=== PATIENT | female | born 1930 | race Caucasian/White ===

== ENCOUNTER → 2017-09-25 | Outpatient (CLI) | END | disposition home or self-care (01) ==

== ENCOUNTER → 2018-03-27 | Outpatient (CLI) | payer MEDICARE, OTHER ==
--- NOTE | 2018-03-27 16:30 | CONS ---
Consult Date/Type/Reason Admit Date/Time Initial Consult Date Date/Time of Note DATE: 03/27/18 TIME: 16:28 Subjective 87-year-old female following up today for bilateral knee pain. At last visit steroid injections were offered however she deferred at that time. She is not interested in surgery. Today her right knee hurts worse than her left knee. She is interested in talking about steroid injections. Her symptoms are unchanged. She has continued moderate pain which interfere with her daily life. Denies any numbness and tingling. Objective Vitals Weight: 150 pounds Height: 5 foot 6 inches Temperature: 90.1 Heart Rate: 87 Blood Pressure: 158/70 Respiratory Rate: 14 Exam General: Awake, alert, in no acute distress, pleasant and cooperative Heart: regular rhythm Lungs: breathing comfortably, no tachypnea or dyspnea MUSCULOSKELETAL: Right and Left Knee This is a well developed female who is alert, oriented times three and in no apparent distress. Skin is intact over the right and left knee as well as the lower extremity with no abrasions, lacerations, or ulcerations. Observation of the patient's gait reveals an antalgic gait with slight valgus thrust. Frontal plane alignment is valgus on the right > left knees. There is pain on palpation of medial and lateral joint line. Marked tenderness to palpation along the distal IT band bilaterally. The patient demonstrates grinding anteriorly with ROM. Range of motion: 3 extension to approximately 130 degrees of flexion on the right and 5-130 on the left. Collateral ligament testing reveals no instability with varus or valgus stress at 0 and 30 degrees of flexion. Negative Nay's and negative posterior drawer. Neurovascularly intact with 5/5 EHL/tibialis anterior/gastroc. Sensation intact to light touch in a sural, saphenous, deep peroneal, superficial peroneal, medial and lateral plantar nerve distribution. Palpable, symmetric dorsalis pedis and posterior tibial pulses in both lower extremities. Hip examination normal. Right fixed pes planus Assessment/Plan Hospital Course (Demo Recall) 87-year-old female with bilateral knee osteoarthritis with valgus deformity. She continues to have pain which affects her daily. She is not interested in discussing surgery. However she would like to try a right knee steroid injection. Plan: Right knee steroid injection Low impact activity Follow-up in 3 months or as needed for right knee. Follow-up as needed for left knee for possible steroid injection as well. Assessment/Plan (Daily) Right knee steroid injection procedure: Risks and benefits of steroid injection reviewed with patient. The risks include infection, failure, pain, swelling, nerve/tendon/ligament damage. The patient verbalized understanding and verbal consent was obtained prior to procedure. The right knee was prepped in a sterile fashion with alcohol and betadine the site of injection was confirmed. Lateral approach was used. The skin and capsule was anesthetized with 3mL 1% lidocaine. The right knee was injected with 2mL 1% lidocaine, 2mL 0.25% bupivacaine, 40mg Depo-Medrol. Injection flowed freely. Good hemostasis was achieved and no complications noted. The patient tolerated the procedure well. Limit activity and ice for 24-48 hours JOSE ALEJANDRO GUARDADO MD Mar 27, 2018 16:30
== END | disposition home or self-care (01) ==
LOC: HKI 14:20
PROVIDERS: ATTEND Orthopaedic Surgery Adult Reconstructive Orthopaedic Surgery
DX: M17.0 Bilateral primary osteoarthritis of knee (principal); M21.062 Valgus deformity, not elsewhere classified, left knee; M21.061 Valgus deformity, not elsewhere classified, right knee
CPT/HCPCS: 20610; G0463